=== PATIENT | female | born 1965 | race Caucasian/White ===

== ENCOUNTER 2017-05-26 19:45 | Emergency (ER) | payer OTHER ==
[~2017-05-26] VITALS: Ht 162.6 cm; Wt 61.2 kg
[2017-05-26 19:51] VITALS: BP 146/65
--- NOTE | 2017-05-26 20:10 | NUR ---
CALLED PT IN [place], NO RESPONSE
--- NOTE | 2017-05-26 21:58 | NUR ---
CALLED PT IN [place], NO RESPONSE
== END 2017-05-26 21:59 | disposition left against medical advice (07) ==
LOC: ER 19:47
DX: Z53.21 Procedure and treatment not carried out due to patient leaving prior to being seen by health care provider (principal)
CPT/HCPCS: A4606; Z7610